=== PATIENT | male | born 2000 | race Caucasian/White ===

== ENCOUNTER 2022-03-02 17:12 | Emergency (ER) | payer MEDICAID ==
[~2022-03-02] VITALS: Ht 165.1 cm; Wt 65.0 kg
[2022-03-02 17:20] VITALS: BP 136/85
[2022-03-02] MEDS ORDERED: ACETAMINOPHEN 325MG TABLET PO ONE (18:00)
[2022-03-02] MEDS ORDERED: ONDANSETRON HCL 4MG/2ML INJ IM ONE (19:15)
[2022-03-02 20:13] LABS: BASOPHILS % 0.1 % (0.0-2.0); HEMATOCRIT. 43.8 % (42.0-52.0); HEMOGLOBIN. 14.9 g/dL (14.0-18.0); LYMPHOCYTES % 8.7 % (20.0-50.0); MEAN CORPUSCULAR HEMOGLOBIN 29.3 pg (28.0-32.0); MEAN PLATELET VOLUME 9.1 fl (7.4-10.4); NEUTROPHILS % 84.2 % (40.0-76.0); PLATELET 147 x1000/uL (130-400); RED BLOOD CELL COUNT 5.09 mill/uL (4.7-6.1); RED CELL DISTRIBUTION WIDTH 13.1 % (11.6-14.6)
[2022-03-02 20:20] LABS: CHLORIDE 102 mEq/L (98-107)
== END 2022-03-02 22:08 | disposition home or self-care (01) ==
LOC: ER 17:12
DX: K52.9 Noninfective gastroenteritis and colitis, unspecified (principal); J45.909 Unspecified asthma, uncomplicated; Z20.822 Contact with and (suspected) exposure to COVID-19
CPT/HCPCS: 36415; 80053; 83690; 85025; 87426; 87804; 96372; 99283; C9803; J2405